=== PATIENT | female | born 1990 | race African-American/Black ===

== ENCOUNTER 2017-07-10 08:45 | Emergency (ER) | payer MEDICAID, OTHER, SELFPAY ==
[2017-07-10 09:20] LABS: Bilirubin Negative (Negative); Blood, Urine Negative (Negative); Clarity CLEAR (Clear); Glucose, Urine (Dipstick) Negative (Negative); Leukocyte Negative (Negative); Nitrite Negative (Negative); Protein, Urine (Dipstick) Negative (Neg-Trace); Specific Gravity, Urine 1.008 (1.002-1.036); Urobilinogen 0.2 mg/dL (0.2-1.0)
[2017-07-10] MEDS ORDERED: Morphine 4 MG/ML VIAL ONE (09:23)
[2017-07-10 09:24] LABS: #Eosinphils 0.2 thou/uL (0.0-0.7); #Lymphocytes 1.6 thou/uL (1.20-3.40); #Monocytes 0.5 thou/uL (0.11-0.59); #Neutrophils 4.1 thou/uL (1.40-6.50); %Basophils 0.4 % (0.0-1.0); %Lymphocytes 24.5 % (21.0-51.0); %Monocytes 7.2 % (0.0-10.0); Mean Corpuscular Hemoglobin 29.4 pg (27.0-31.0); Mean Corpuscular Volume 89.3 fl (81.0-99.0); Mean Platelet Volume 6.9 fL (7.4-10.4); Platelet Count 288 thou/uL (130-400); RBC Distribution Width 11.8 % (11.5-14.5); Red Blood Cell (RBC) Count 4.76 mill/uL (4.20-5.40); White Blood Cell (WBC) Count 6.3 thou/uL (4.8-10.8)
[2017-07-10 09:24] LABS: Pregnancy Test - Urine (BHCG) Negative (Negative); Pregu Control Background? CLEAR/WHITE (CLR/WHITE); Pregu Control Bar Appear? YES (CONTROL BAR); Specific Gravity 1.008 (1.002-1.036)
[2017-07-10] MEDS ORDERED: Metoclopramide 10 MG/10 ML UDCUP ONE (09:38)
[2017-07-10 09:44] LABS: ALT (SGPT) 23 U/L (8-55); AST (SGOT) 22 U/L (5-34); Albumin 4.5 g/dL (3.5-5.0); Alkaline Phosphatase 52 U/L (40-150); Anion Gap 12 mmol/L (10-20); BUN (Urea Nitrogen) 7 mg/dL (7.0-18.7); Bilirubin, Total 0.3 mg/dL (0.2-1.2); Calc. Creatinine Clearance 0 mL/min (70-130); Calcium 9.1 mg/dL (7.8-10.44); Carbon Dioxide 27 mmol/L (22-29); Chloride 103 mmol/L (98-107); Estimated GFR-MDRD Greater than 90; Globulin 3.3 g/dL (2.4-3.5); Glucose 75 mg/dL (70-105); Lipase 22 U/L (8-78); Potassium 3.9 mmol/L (3.5-5.1); Protein, Total 7.8 g/dL (6.0-8.3); Sodium 138 mmol/L (136-145)
[2017-07-10] MEDS ORDERED: Metoclopramide HCl 10 MG/2 ML VIAL IVP SCH (10:00)
--- NOTE | 2017-07-10 10:21 | ULT ---
RIGHT UPPER QUADRANT SONOGRAM: Date: 07/10/17 HISTORY: Right upper quadrant pain. FINDINGS: Gallbladder has a normal appearance without evidence of stones. Common duct is 0.4 cm. Liver is unrem arkable without focal mass or intrahepatic biliary dilatation. No free fluid. IMPRESSION: No significant abnormalities are demonstrated. POS: [facility]
== END 2017-07-10 10:58 | disposition home or self-care (01) ==
LOC: ERS 08:45
DX: R10.11 Right upper quadrant pain (principal); R11.2 Nausea with vomiting, unspecified; F41.9 Anxiety disorder, unspecified; F32.9 Major depressive disorder, single episode, unspecified; Z87.891 Personal history of nicotine dependence
CPT/HCPCS: 36415; 76705; 80053; 81003; 81025; 83690; 85025; 96361; 96374; J2270; J2765

== ENCOUNTER 2017-08-11 08:37 | Outpatient (CLI) | payer OTHER ==
--- NOTE | 2017-08-11 13:32 | NM ---
Hepatobiliary scan: Date: 08/11/17. COMPARISON: None. HISTORY: Right upper quadrant pain. TECHNIQUE: Anterior planar imaging of the abdomen obtained following the intravenous administration of 5.5 mCi t echnetium 99m labeled mebrofenin. Upon visualization of the gallbladder, the patient ingested 8 ounc es of Ensure to calculate the gallbladder ejection fraction. FINDINGS: There is prompt radiotracer activity within the liver and post injection imaging. The gallbladder is seen by 5 minutes. Biliary activity and small bowel activity is seen by 25-30 minutes. Gallbladder ejection fraction is 68%, within normal limits. IMPRESSION: Scintigraphic evidence of cystic duct patency. Normal gallbladder ejection fraction. POS: [facility]
== END 2017-08-11 08:38 | disposition home or self-care (01) ==
LOC: NM 08:37
PROVIDERS: ATTEND Specialist
DX: R10.11 Right upper quadrant pain (principal)
CPT/HCPCS: 78227; A9537

== ENCOUNTER 2017-08-20 12:09 | Outpatient (CLI) | payer OTHER ==
[2017-08-20 13:14] LABS: #Basophils 0.1 thou/uL (0.0-0.2); #Eosinphils 0.3 thou/uL (0.0-0.7); #Lymphocytes 1.7 thou/uL (1.20-3.40); #Monocytes 0.5 thou/uL (0.11-0.59); #Neutrophils 5.5 thou/uL (1.40-6.50); %Basophils 0.6 % (0.0-1.0); %Eosinophils 3.9 % (0.0-10.0); %Lymphocytes 21.4 % (21.0-51.0); %Monocytes 5.9 % (0.0-10.0); %Neutrophils 68.2 % (42.0-75.0); Hemoglobin 12.8 g/dL (12.0-16.0); Mean Corpuscular HGB CONC 33.3 g/dL (32.0-36.0); Mean Corpuscular Hemoglobin 29.7 pg (27.0-31.0); Mean Corpuscular Volume 89.3 fl (81.0-99.0); Mean Platelet Volume 7.7 fL (7.4-10.4); Platelet Count 272 thou/uL (130-400); RBC Distribution Width 12.2 % (11.5-14.5); White Blood Cell (WBC) Count 8.1 thou/uL (4.8-10.8)
[2017-08-20 13:37] LABS: Anion Gap 13 mmol/L (10-20); BUN (Urea Nitrogen) 13 mg/dL (7.0-18.7); Calc. Creatinine Clearance 0 mL/min (70-130); Calcium 9.2 mg/dL (7.8-10.44); Carbon Dioxide 24 mmol/L (22-29); Chloride 107 mmol/L (98-107); Estimated GFR-MDRD Greater than 90; Glucose 85 mg/dL (70-105); Potassium 3.7 mmol/L (3.5-5.1); Sodium 140 mmol/L (136-145)
[2017-08-20 14:33] LABS: BHCG - Serum Negative (NEGATIVE); Pregs Control Background? CLEAR/WHITE (CLR/WHITE); Pregs Control Bar Appear? YES (CONTROL BAR)
== END 2017-08-20 12:10 | disposition home or self-care (01) ==
LOC: LABBT 12:09
PROVIDERS: ATTEND Specialist
DX: Z01.812 Encounter for preprocedural laboratory examination (principal); R10.11 Right upper quadrant pain
CPT/HCPCS: 80048; 84703; 85025

== ENCOUNTER 2017-08-21 06:13 | Day surgery (SDC) | payer OTHER ==
--- NOTE | 2017-08-19 15:39 | HP ---
HISTORY OF PRESENT ILLNESS: Marlo Acosta, 27-year-old female, with persistent epigastric righ t upper quadrant pain, episodic, occurring over the last several years. She has had numerous ultraso unds at [facility] 12/30/2013, 10/14/2015, 07/08/2016, 07/10/2017 all unremarkable. Liver f unction tests were normal. She had a HIDA scan that was normal. ALLERGIES: PHENERGAN, CIPRO, HYDROXYZINE. TOBACCO: None. ALCOHOL: None. MEDICATIONS: None. PAST SURGICAL HISTORY: D&C, missed AB, 06/2007. PAST MEDICAL HISTORY: Noncontributory. MEDICATIONS: None. REVIEW OF SYSTEMS: Ten-point noncontributory. PHYSICAL EXAMINATION: VITAL SIGNS: 172 pounds, 62 inches, 117/68, 83, 98.8 degrees. HEAD, EYES, EARS, NOSE, AND THROAT: Unremarkable. LUNGS: Clear to auscultation. CARDIAC: Regular rate and rhythm without murmur or gallop. ABDOMEN: Soft, nontender. EXTREMITIES: Unremarkable. No ankle edema. ASSESSMENT AND PLAN: Acalculous cholecystitis. Suspect cholesterolosis, microlithiasis, or false ne gative ultrasound. I have discussed with the patient options for EGD, which probably would not accou nt for episodic biliary-type complaints versus laparoscopic cholecystectomy. Understanding that I ca nnot 100% guarantee it will relieve her discomfort; and risk of infection, bleeding, visceral and jenn iary injury explained, she consents.
[2017-08-19 17:05] VITALS: BMI 31.8
[2017-08-21] MEDS ORDERED: Ketorolac Tromethamine 30 MG/ML VIAL ONE (07:08)
[2017-08-21] MEDS ORDERED: CEFAZOLIN/Water 2 GM/20 ML SYRINGE ONE (07:08)
[2017-08-21] MEDS ORDERED: Scopolamine 1.5 mg/72 hour Patch ONE (07:08)
[2017-08-21] MEDS ORDERED: Midazolam HCl 2 mg/2 ml Vial ONE (08:51)
[2017-08-21] MEDS ORDERED: Bupivacaine HCl 0.5%/Epinephrine 1:200,000/PF 30 ml Vial ONE (08:51)
[2017-08-21] MEDS ORDERED: HYDROmorphone 0.5 MG/0.5 ML SYRINGE ONE (08:56)
[2017-08-21] MEDS ORDERED: Fentanyl 100 MCG/2 ML VIAL ONE ×2 (08:56→10:09)
--- NOTE | 2017-08-21 11:22 | OP ---
DATE OF PROCEDURE: 08/21/2017 PREOPERATIVE DIAGNOSES: Chronic cholecystitis, cholelithiasis. POSTOPERATIVE DIAGNOSES: Chronic cholecystitis, cholelithiasis. PROCEDURE PERFORMED: Laparoscopic video cholecystectomy. SURGEON: Sage Shaikh M.D. ANESTHESIA: General. Local 0.5% Marcaine with epinephrine 30 mL. DESCRIPTION OF PROCEDURE: The patient was taken to the operating room where under general anesthesia , abdomen was prepared with ChloraPrep, draped in routine fashion. Local anesthetic infiltrated into skin and subcutaneous tissue about each port site. Infraumbilical incision was made. Pneumoperiton eum to 15 mmHg obtained with the Veress needle, replacing it with a 5 port and video laparoscope inse rted. Right subxiphoid incision was made and 11 port placed. Right subcostal incision was made mid clavicular anterior axillary lines and 5 ports placed. Liver appeared to be normal. Fundus of the g allbladder grasped and reflected cephalad. The infundibulum grasped and reflected laterally. Cystic artery and duct dissected free. Critical view obtained. Cystic artery and duct doubly clipped prox imally, divided, and gallbladder dissected free from the liver bed obtaining good hemostasis prior to division of final peritoneal attachments. Gallbladder and contents removed and submitted to Patholo gy. Good hemostasis ensured as pneumoperitoneum and irrigant evacuated. All instruments removed and all skin incisions approximated with interrupted subdermal 4-0 Monocryl and DermaGlue applied.
[2017-08-21] MEDS ORDERED: Morphine 4 MG/ML VIAL ONE (11:34)
[2017-08-21] MEDS ORDERED: traMADol HCl 50 MG TAB ONE (12:28)
[2017-08-21] MEDS ORDERED: Ondansetron HCl/PF 4 MG/2 ML Vial ONE (14:04)
[2017-08-21] MEDS ORDERED: Lidocaine 1% PF 5 ML VIAL ONE (14:04)
[2017-08-21] MEDS ORDERED: Glycopyrrolate 0.2 MG/ML 5 ML SYRINGE ONE (14:04)
[2017-08-21] MEDS ORDERED: PROPOFOL 200 MG/20 ML VIAL ONE (14:04)
[2017-08-21] MEDS ORDERED: Dexamethasone 20 MG/5 ML VIAL ONE (14:04)
== END 2017-08-21 13:40 | disposition home or self-care (01) ==
LOC: SDC 06:13
PROVIDERS: ATTEND Specialist
PROC: 0FT44ZZ Resection of Gallbladder, Percutaneous Endoscopic Approach (ICD-10-PCS; principal; 2017-08-21)
DX: K80.10 Calculus of gallbladder with chronic cholecystitis without obstruction (principal); Z88.1 Allergy status to other antibiotic agents; Z88.8 Allergy status to other drugs, medicaments and biological substances
CPT/HCPCS: 88304; 96374; J0131; J0670; J1100; J1170; J1885; J2001; J2250; J2270; J2405; J2704; J3010

== ENCOUNTER 2017-09-15 07:55 | Emergency (ER) | payer OTHER ==
[2017-09-15 08:24] LABS: Bilirubin Negative (Negative); Blood, Urine Negative (Negative); Clarity CLEAR (Clear); Glucose, Urine (Dipstick) Negative (Negative); Leukocyte Small (Negative); Nitrite Negative (Negative); Protein, Urine (Dipstick) Negative (Neg-Trace); Urobilinogen 0.2 mg/dL (0.2-1.0)
[2017-09-15 08:26] LABS: Bacteria/HPF None Seen HPF (None Seen); Hyaline Casts/LPF 0-3 HYALINE CAST LPF (0-3 Hyaline); Pathc Cast-AUWi Flag 0.14 (0-2.49); RBC/HPF 0-3 HPF (0-3)
[2017-09-15 08:37] LABS: Pregnancy Test - Urine (BHCG) Negative (Negative); Pregu Control Background? CLEAR/WHITE (CLR/WHITE); Pregu Control Bar Appear? YES (CONTROL BAR)
[2017-09-15 08:44] LABS: #Basophils 0.1 thou/uL (0.0-0.2); #Eosinphils 0.3 thou/uL (0.0-0.7); #Lymphocytes 1.9 thou/uL (1.20-3.40); #Monocytes 0.4 thou/uL (0.11-0.59); #Neutrophils 3.4 thou/uL (1.40-6.50); %Basophils 0.9 % (0.0-1.0); %Eosinophils 4.3 % (0.0-10.0); %Lymphocytes 31.2 % (21.0-51.0); %Monocytes 6.5 % (0.0-10.0); %Neutrophils 57.1 % (42.0-75.0); Hemoglobin 12.9 g/dL (12.0-16.0); Mean Corpuscular HGB CONC 32.8 g/dL (32.0-36.0); Mean Corpuscular Hemoglobin 29.2 pg (27.0-31.0); Mean Corpuscular Volume 88.8 fL (78.0-98.0); Mean Platelet Volume 7.5 fL (7.4-10.4); Platelet Count 282 thou/uL (130-400); RBC Distribution Width 12.6 % (11.5-14.5); Red Blood Cell (RBC) Count 4.44 mill/uL (4.20-5.40)
[2017-09-15] MEDS ORDERED: Metoclopramide HCl 10 MG/2 ML VIAL ONE (09:02)
[2017-09-15 09:06] LABS: ALT (SGPT) 12 U/L (8-55); AST (SGOT) 13 U/L (5-34); Albumin 4.4 g/dL (3.5-5.0); Alkaline Phosphatase 53 U/L (40-150); Anion Gap 15 mmol/L (10-20); BUN (Urea Nitrogen) 12 mg/dL (7.0-18.7); Bilirubin, Total 0.4 mg/dL (0.2-1.2); Calc. Creatinine Clearance 0 mL/min (70-130); Calcium 9.4 mg/dL (7.8-10.44); Carbon Dioxide 22 mmol/L (22-29); Chloride 106 mmol/L (98-107); Estimated GFR-MDRD Greater than 90; Glucose 84 mg/dL (70-105); Lipase 18 U/L (8-78); Protein, Total 7.4 g/dL (6.0-8.3); Sodium 139 mmol/L (136-145)
[2017-09-15] MEDS ORDERED: Pantoprazole 40 MG VIAL ONE (10:09)
[2017-09-15] MEDS ORDERED: diphenhydrAMINE 50 MG/ML VIAL ONE (10:18)
--- NOTE | 2017-09-15 11:28 | CT ---
ABDOMEN CT WITH CONTRAST PELVIC CT WITH CONTRAST: History: Abdominal pain. Evaluate for appendicitis. Comparison: 01-06-06 FINDINGS: ABDOMEN CT: Lung bases are clear. The heart size is normal. No pericardial effusion. The descending thoracic aorta and abdominal aorta is normal caliber. No periaortic fat stranding. There is appropriate enhancement and patency of the portal vein. Gallbladder is surgically absent. Mild heterogeneity of the liver is noted, nonspecific. Areas of fatty infiltration and sparring are s uspected. Upper normal spleen. Pancreas and adrenal glands are unremarkable. Symmetric enhancement of the kidneys. Bilaterally, no obstructive uropathy. No gastrohepatic, retrocrural, periportal lymphadenopathy. No mesenteric mass, lymphadenopathy, free air or free fluid. Gastric mucosa, duodenum and multiple normal caliber small bowel loops are noted. Ileocecal junction is normal. Normal caliber appendix. Scattered fecal material in a nondistended, nondilated colon. Occ asional diverticulum. No diverticulitis. PELVIC CT: No mass, lymphadenopathy, or free air. There is free fluid in the pelvis, nonspecific. Uterus and adn exal structures are unremarkable. No lytic or blastic lesions in the osseous structures. IMPRESSION: 1. Normal caliber appendix. 2. Slightly complex free fluid in the pelvis, which may be physiologic. Correlate clinically. POS: [facility]
[2017-09-15] MEDS ORDERED: metroNIDAZOLE 250 MG TAB ONE (13:00)
[2017-09-15] MEDS ORDERED: ISOVUE-370 76%-LOCM 1 ML ONE (13:04)
[2017-09-15] MEDS ORDERED: Iopamidol 370 76% 50 ML VIAL FS ONE (13:04)
[2017-09-15] MEDS ORDERED: cefTRIAXone\\ROCEPHIN 250 MG VIAL ONE (13:19)
[2017-09-15] MEDS ORDERED: Azithromycin 250 MG TAB ONE (13:19)
[2017-09-15] MEDS ORDERED: Lidocaine 1% PF 5 ML VIAL ONE (13:19)
--- NOTE | 2017-09-15 13:41 | ULT ---
PELVIC ULTRASOUND: Date: 09/15/17 COMPARISON: None. HISTORY: Right lower quadrant pain, free fluid in pelvis on recent CT exam. TECHNIQUE: Multiplanar Prieto scale sonographic imaging of the pelvis obtained with transabdominal and endovaginal imaging. Ovaries are assessed with color flow and spectral analysis. FINDINGS: The uterus measures 9.2 x 4.4 x 4.6 cm. No uterine mass identified. Endometrial stripe measures in th e 1.0 cm range, within normal limits. Right ovary measures 3.2 x 1.8 x 2.0 cm. Left ovary measures 3. 4 x 2.0 x 2.0 cm. There is normal blood flow within the ovaries with no evidence for mass. Nabothian cysts are noted within the cervix. There is nonspecific mildly complex fluid noted in the pelvic cul- de-sac. IMPRESSION: Free fluid in the pelvis - otherwise unremarkable. POS: [facility]
[2017-09-16 23:43] LABS: Chlamydia by PCR Not Detected (NotDetected); GC by PCR Not Detected (NotDetected)
== END 2017-09-15 13:40 | disposition home or self-care (01) ==
LOC: ERS 07:55
DX: R10.31 Right lower quadrant pain (principal); Z87.891 Personal history of nicotine dependence; F41.9 Anxiety disorder, unspecified; F32.9 Major depressive disorder, single episode, unspecified
CPT/HCPCS: 36415; 74177; 76856; 80053; 81003; 81015; 81025; 83690; 85025; 87086; 87480; 87491; 87510; 87591; 87660; 96361; 96372; 96374; 96375; C9113; J0696; J1200; J2001; J2270; J2765

== ENCOUNTER 2018-07-04 12:44 | Emergency (ER) | payer OTHER ==
[2018-07-04 13:31] LABS: Pregnancy Test - Urine (BHCG) Negative (Negative); Pregu Control Background? CLEAR/WHITE (CLR/WHITE); Pregu Control Bar Appear? YES (CONTROL BAR); Specific Gravity 1.029 (1.002-1.036)
== END 2018-07-04 14:00 | disposition home or self-care (01) ==
LOC: SCSER 12:44
DX: R51 Headache (principal); R11.0 Nausea; F41.9 Anxiety disorder, unspecified; F32.9 Major depressive disorder, single episode, unspecified; Z87.891 Personal history of nicotine dependence; V43.52XA Car driver injured in collision with other type car in traffic accident, initial encounter
CPT/HCPCS: 81025; 99284

== ENCOUNTER 2018-07-06 11:09 | Emergency (ER) | payer OTHER ==
[2018-07-06 12:05] LABS: #Basophils 0.1 thou/uL (0.0-0.2); #Eosinphils 0.2 thou/uL (0.0-0.7); #Lymphocytes 1.5 thou/uL (1.20-3.40); #Monocytes 0.4 thou/uL (0.11-0.59); #Neutrophils 4.1 thou/uL (1.40-6.50); %Eosinophils 3.2 % (0.0-10.0); %Lymphocytes 23.6 % (21.0-51.0); %Monocytes 6.5 % (0.0-10.0); %Neutrophils 65.7 % (42.0-75.0); Mean Corpuscular HGB CONC 31.4 g/dL (32.0-36.0); Mean Corpuscular Hemoglobin 28.4 pg (27.0-31.0); Mean Corpuscular Volume 90.4 fL (78.0-98.0); Mean Platelet Volume 7.2 fL (7.4-10.4); Platelet Count 253 thou/uL (130-400); RBC Distribution Width 12.3 % (11.5-14.5); Red Blood Cell (RBC) Count 4.23 mill/uL (4.20-5.40); White Blood Cell (WBC) Count 6.3 thou/uL (4.8-10.8)
[2018-07-06 12:11] LABS: BHCG - Serum Negative (NEGATIVE); Pregs Control Background? CLEAR/WHITE (CLR/WHITE); Pregs Control Bar Appear? YES (CONTROL BAR)
[2018-07-06 12:23] LABS: ALT (SGPT) 9 U/L (8-55); AST (SGOT) 12 U/L (5-34); Alkaline Phosphatase 40 U/L (40-150); Anion Gap 10 mmol/L (10-20); BUN (Urea Nitrogen) 20 mg/dL (7.0-18.7); Bilirubin, Total 0.3 mg/dL (0.2-1.2); Calc. Creatinine Clearance 0 mL/min (70-130); Carbon Dioxide 25 mmol/L (22-29); Chloride 107 mmol/L (98-107); Estimated GFR-MDRD Greater than 90; Globulin 2.8 g/dL (2.4-3.5); Glucose 79 mg/dL (70-105); Lipase 24 U/L (8-78); Potassium 4.1 mmol/L (3.5-5.1); Protein, Total 6.8 g/dL (6.0-8.3); Sodium 138 mmol/L (136-145)
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
== END 2018-07-06 13:34 | disposition home or self-care (01) ==
LOC: SCSER 11:09
DX: R11.2 Nausea with vomiting, unspecified (principal); R42 Dizziness and giddiness; R51 Headache; F41.9 Anxiety disorder, unspecified; F32.9 Major depressive disorder, single episode, unspecified; Z87.891 Personal history of nicotine dependence; V48.0XXA Car driver injured in noncollision transport accident in nontraffic accident, initial encounter; Y92.481 Parking lot as the place of occurrence of the external cause
CPT/HCPCS: 70450; 80053; 83690; 84703; 85025

== ENCOUNTER 2018-08-30 10:04 | Outpatient (CLI) | payer OTHER ==
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
== END 2018-08-30 10:05 | disposition home or self-care (01) ==
LOC: SCSMRI 10:04
PROVIDERS: ATTEND Family Medicine
DX: R93.0 Abnormal findings on diagnostic imaging of skull and head, not elsewhere classified (principal); G93.9 Disorder of brain, unspecified
CPT/HCPCS: 70553

== ENCOUNTER 2019-02-19 00:16 | Emergency (ER) | payer OTHER, SELFPAY ==
[2019-02-19] MEDS ORDERED: Dexamethasone 10 MG/ML VIAL ONE (00:59)
== END 2019-02-19 01:02 | disposition home or self-care (01) ==
LOC: ERS 00:16
DX: J06.9 Acute upper respiratory infection, unspecified (principal); F41.9 Anxiety disorder, unspecified; F32.9 Major depressive disorder, single episode, unspecified; Z87.891 Personal history of nicotine dependence; Z79.899 Other long term (current) drug therapy
CPT/HCPCS: 99283; J1100

== ENCOUNTER 2019-03-29 05:02 | Emergency (ER) | payer SELFPAY ==
[2019-03-29] MEDS ORDERED: Ondansetron ODT 8 MG TAB ONE (05:19)
[2019-03-29] MEDS ORDERED: Ketorolac Tromethamine 60 MG/2 ML VIAL ONE (05:19)
[2019-03-29 06:05] LABS: Pregnancy Test - Urine (BHCG) Negative (Negative); Pregu Control Background? CLEAR/WHITE (CLR/WHITE); Pregu Control Bar Appear? YES (CONTROL BAR); Specific Gravity 1.022 (1.002-1.036)
[2019-03-29 06:12] LABS: Bilirubin Negative (Negative); Blood, Urine Negative (Negative); Clarity Turbid (Clear); Glucose, Urine (Dipstick) Normal (Negative); Leukocyte Negative Leu/uL (Negative); Nitrite Negative (Negative); Protein, Urine (Dipstick) Negative (Neg-Trace); Urobilinogen Normal mg/dL (Less than 2)
== END 2019-03-29 06:28 | disposition home or self-care (01) ==
LOC: ERS 05:02
DX: R51 Headache (principal); R11.0 Nausea; R10.9 Unspecified abdominal pain; Z87.891 Personal history of nicotine dependence
CPT/HCPCS: 81003; 81025; 99284; J1885

== ENCOUNTER 2019-10-25 11:48 | Emergency (ER) | payer OTHER, SELFPAY ==
[2019-10-26 13:24] LABS: SARS-CoV-2 MS2 Positive; SARS-CoV-2 N Gene Positive; SARS-CoV-2 S Gene Positive; SARS-CoV-2 by NAA DETECTED (NotDetected); SARS-CoV-2 orf1ab Positive
== END 2019-10-25 12:23 | disposition home or self-care (01) ==
LOC: ERS 11:48
DX: U07.1 COVID-19 (principal); F41.9 Anxiety disorder, unspecified; F32.9 Major depressive disorder, single episode, unspecified; Z87.891 Personal history of nicotine dependence
CPT/HCPCS: 87635; 99283; U0003